=== PATIENT | female | born 1940 | race Caucasian/White ===

== ENCOUNTER 2019-10-31 14:55 | Emergency (ER) | payer MEDICARE, MEDICAID ==
--- NOTE | 2019-10-31 15:23 | EDM.PDOC ---
ED HPI GENERAL MEDICAL PROBLEM - General Chief Complaint: Respiratory Problem Stated Complaint: COUGH Time Seen by Provider: 10/31/19 15:23 Source of Information: Reports: Patient, Family History Limitations: Reports: Altered Mental Status (Dementia) - History of Present Illness INITIAL COMMENTS - FREE TEXT/NARRATIVE: The patient is seen with her a tilesetter from the long-term. He states that she has been coughing for about a week but does not seem to bring up anything. No fever or chills reported. No other complaints noted. Onset: Gradual (about one week) Worsens with: Reports: Other (coughing) Associated Symptoms: Reports: Other (The patient has dementia) - Related Data Allergies Allergy/AdvReac Type Severity Reaction Status Date / Time No Known Allergies Allergy Verified 10/31/19 15:24 Home Meds: Home Meds Acetaminophen [Tylenol Arthritis] 650 mg PO Q4HR PRN 10/31/19 [History] Acetaminophen [Tylenol Arthritis] 650 mg PO QID 10/31/19 [History] Albuterol Sulfate 2.5 mg IH QID 10/31/19 [History] Alendronate Sodium [Fosamax] 70 mg PO WEEKLY 10/31/19 [History] Benzonatate [Tessalon Perle] 100 mg PO Q12HR PRN 10 Days #20 capsule 10/31/19 [ Rx] Budesonide/Formoterol Fumarate [Symbicort 160-4.5 Mcg Inhaler] 2 puff INH BID [History] Calcium Citrate/Vitamin D3 [Calcium Cit 315-Vit D3 250 Tab] 1 tab PO BID [History] Carbamide Peroxide [Debrox] 5 drop OT ASDIRECTED 10/31/19 [History] Cephalexin [Keflex] 500 mg PO Q12HR 7 Days #14 capsule 10/31/19 [Rx] Dextromethorphan/guaiFENesin [Mucinex DM ER 600-30 MG] 1 tab PO BID 5 Days #10 tab.er 10/31/19 [Rx] Furosemide 20 mg PO DAILY 10/31/19 [History] Ipratropium/Albuterol Sulfate [Iprat-Albut 0.5-3(2.5) mg/3 ml] 3 ml IH ASDIRECTED 10/31/19 [History] Levothyroxine 25 mcg PO ACBREAKFAST 10/31/19 [History] Metoprolol Tartrate [Lopressor] 50 mg PO BID 10/31/19 [History] Multivitamin [Multi-Vitamin Daily] 1 tab PO DAILY 10/31/19 [History] Nystatin 1 each MC ASDIRECTED 10/31/19 [History] Omeprazole 20 mg PO DAILY 10/31/19 [History] Polyethylene Glycol 3350 [MiraLAX] 17 gm PO DAILY 10/31/19 [History] Rosuvastatin [Crestor] 5 mg PO DAILY 10/31/19 [History] Sertraline HCl [Zoloft] 50 mg PO DAILY 10/31/19 [History] Trolamine Salicylate/Aloe Vera [Aspercreme 10% Cream] 1 dose TOP Q6HR PRN [History] ED ROS GENERAL - Review of Systems Review Of Systems: See Below Constitutional: Reports: No Symptoms HEENT: Reports: No Symptoms Respiratory: Reports: Cough (that is non-productive for about one week) Cardiovascular: Reports: No Symptoms Endocrine: Reports: No Symptoms GI/Abdominal: Reports: No Symptoms : Reports: No Symptoms Musculoskeletal: Reports: No Symptoms Skin: Reports: No Symptoms Neurological: Reports: Other (has dementia) ED EXAM, GENERAL - Physical Exam Exam: See Below Exam Limited By: Altered Mental Status (Dementia) General Appearance: Alert, WD/WN, No Apparent Distress Eye Exam: Bilateral Eye: EOMI, Normal Inspection, PERRL Ears: Normal External Exam, Normal Canal, Hearing Grossly Normal, Normal TMs Ear Exam: Bilateral Ear: Auricle Normal, Canal Normal, TM normal Nose: Normal Inspection, Normal Mucosa, No Blood Throat/Mouth: Normal Inspection, Normal Lips, Normal Teeth, Normal Gums, Normal Oropharynx, No Airway Compromise Head: Atraumatic, Normocephalic Neck: Normal Inspection, Supple, Non-Tender, Full Range of Motion Respiratory/Chest: No Respiratory Distress, Decreased Breath Sounds (through out ), Rales (in both bases), Rhonchi (rhonchi noted through the chest wall with rales at the bases.). No: Crackles, Wheezing, Stridor, Pleural Rub, Accessory Muscle Use, Retractions Cardiovascular: No Edema, No Gallop, No JVD, No Rub, Systolic Murmur (grade 2-3/ 6 best heard at the apex). No: Gallop/S3, Gallop/S4 Peripheral Pulses: 1+: Dorsalis Pedis (L), Dorsalis Pedis (R), 2+: Radial (L), Radial (R), 3+: Carotid (L), Carotid (R) GI/Abdominal: Normal Bowel Sounds, Soft, Non-Tender, No Organomegaly, No Distention, No Abnormal Bruit, No Mass Back Exam: Normal Inspection, Full Range of Motion, NT Extremities: Normal Inspection, Normal Range of Motion, Non-Tender, Normal Capillary Refill, No Pedal Edema Neurological: Other (unable evaluate due to dementia) Psychiatric: Other (unable to evaluate due to dementia) Lymphatic: No Adenopathy Course - Vital Signs Text/Narrative:: The patient is doing much better just prior to discharge. She has a oxygen sat of 94% on 1 liter of nasal oxygen. She is coughing much less. We stopped the Levaquin due to probable drug reaction and treated her with Atarax. The red rash in the left arm cleared. Her lungs sounds are improved. She will be discharged with Keflex, Mucinex DM and Tensilon pearls. She and the Screw Machine Set Up Operator agrees with the treatment and discharge plan. Last Recorded V/S: Last Vital Signs Temp 96.8 F 10/31/19 15:16 Pulse 102 H 10/31/19 17:28 Resp 20 10/31/19 17:28 BP 95/75 10/31/19 17:28 Pulse Ox 95 10/31/19 17:28 - Orders/Labs/Meds Orders: Active Orders 24 hr Category Date Time Status Levofloxacin/Dextrose 5%-Water [Levaquin in D5W 750 MG/ Med 10/31/19 16:37 Active 150 ML] 750 mg Premix Bag 1 bag IV ONETIME Sodium Chloride 0.9% [Normal Saline] 500 ml Med 10/31/19 17:00 Active IV .BOLUS Medication Orders Levofloxacin/Dextrose 750 mg/ (Premix) 150 mls @ 100 mls/hr IV ONETIME ONE Stop: 10/31/19 18:06 Last Admin: 10/31/19 17:01 Dose: 100 mls/hr Sodium Chloride (Normal Saline) 500 mls @ 999 mls/hr IV .BOLUS NEGRO Last Admin: 10/31/19 16:59 Dose: 999 mls/hr Labs: Laboratory Tests 10/31/19 10/31/19 Range/Units 13:50 13:50 WBC 6.88 (4.0-11.0) K/uL RBC 4.28 L (4.30-5.90) M/uL Hgb 12.1 (12.0-16.0) g/dL Hct 36.7 (36.0-46.0) % MCV 85.7 (80.0-98.0) fL MCH 28.3 (27.0-32.0) pg MCHC 33.0 (31.0-37.0) g/dL RDW Std Deviation 45.0 (28.0-62.0) fl RDW Coeff of Bill 15 (11.0-15.0) % Plt Count 315 (150-400) K/uL MPV 8.60 (7.40-12.00) fL Neut % (Auto) 71.1 (48.0-80.0) % Lymph % (Auto) 21.5 (16.0-40.0) % Page % (Auto) 6.4 (0.0-15.0) % Eos % (Auto) 0.9 (0.0-7.0) % Baso % (Auto) 0.1 (0.0-1.5) % Neut # (Auto) 4.9 (1.4-5.7) K/uL Lymph # (Auto) 1.5 (0.6-2.4) K/uL Page # (Auto) 0.4 (0.0-0.8) K/uL Eos # (Auto) 0.1 (0.0-0.7) K/uL Baso # (Auto) 0.0 (0.0-0.1) K/uL B-Natriuretic Peptide 148 H (<100) PG/ML Meds: Medications Generic Name Dose Route Start Last Admin Trade Name Freq PRN Reason Stop Dose Admin Levofloxacin/Dextrose 750 mg/ 150 mls @ 100 mls/hr 10/31/19 16:37 10/31/19 17 :01 Premix IV 10/31/19 18:06 100 mls/hr ONETIME ONE Administration Sodium Chloride 500 mls @ 999 mls/hr 10/31/19 17:00 10/31/19 16:59 Normal Saline IV 999 mls/hr .BOLUS NEGRO Administration Discontinued Medications Generic Name Dose Route Start Last Admin Trade Name Markell PRN Reason Stop Dose Admin Benzonatate 100 mg 10/31/19 17:59 Tessalon Perles PO 10/31/19 18:00 ONETIME ONE Cephalexin 500 mg 10/31/19 18:00 Keflex PO 10/31/19 18:01 ONETIME ONE Guaifenesin 600 mg 10/31/19 15:34 10/31/19 15:57 Mucinex PO 10/31/19 15:35 600 mg ONETIME ONE Administration Hydroxyzine HCl 25 mg 10/31/19 17:21 10/31/19 17:28 Atarax PO 10/31/19 17:22 25 mg ONETIME ONE Administration Departure - Departure Time of Disposition: 18:06 Disposition: Home, Self-Care 01 Condition: Fair Clinical Impression: Bronchitis - Discharge Information *PRESCRIPTION DRUG MONITORING PROGRAM REVIEWED*: Yes *COPY OF PRESCRIPTION DRUG MONITORING REPORT IN PATIENT ELIAN: Yes Instructions: Upper Respiratory Infection, Adult, Acute Bronchitis, Adult, Easy -to-Read Referrals: Guillermo Luz MD [Primary Care Provider] - Forms: ED Department Discharge Additional Instructions: Take all medications as directed. Rest for the next 24 hours. Drink plenty of clear liquids for the next 24-36 hours. Follow up with your PCP in the next two to four days. Return to the ED if your condition gets worse or should have any questions or concerns. The following information is given to patients seen in the emergency department who are being discharged to home. This information is to outline your options for follow-up care. We provide all patients seen in our emergency department with a follow-up referral. The need for follow-up, as well as the timing and circumstances, are variable depending upon the specifics of your emergency department visit. If you don't have a primary care physician on staff, we will provide you with a referral. We always advise you to contact your personal physician following an emergency department visit to inform them of the circumstance of the visit and for follow-up with them and/or the need for any referrals to a consulting specialist. The emergency department will also refer you to a specialist when appropriate. This referral assures that you have the opportunity for follow-up care with a specialist. All of these measure are taken in an effort to provide you with optimal care, which includes your follow-up. Under all circumstances we always encourage you to contact your private physician who remains a resource for coordinating your care. When calling for follow-up care, please make the office aware that this follow-up is from your recent emergency room visit. If for any reason you are refused follow-up, please contact the [facility] Emergency Department at and asked to speak to the emergency department charge nurse. Sepsis Event Note - Focused Exam Vital Signs: Vital Signs Temp Pulse Resp BP Pulse Ox 10/31/19 17:28 102 H 20 95/75 95 10/31/19 16:33 87 20 106/68 95 10/31/19 15:16 96.8 F 91 20 148/51 H 90 L Date Exam was Performed: 10/31/19 Time Exam was Performed: 18:01 - My Orders Last 24 Hours: My Active Orders 10/31/19 16:37 Levofloxacin/Dextrose 5%-Water [Levaquin in D5W 750 MG/150 ML] 750 mg Premix Bag 1 bag IV ONETIME 10/31/19 17:00 Sodium Chloride 0.9% [Normal Saline] 500 ml IV .BOLUS - Assessment/Plan Last 24 Hours: My Active Orders 10/31/19 16:37 Levofloxacin/Dextrose 5%-Water [Levaquin in D5W 750 MG/150 ML] 750 mg Premix Bag 1 bag IV ONETIME 10/31/19 17:00 Sodium Chloride 0.9% [Normal Saline] 500 ml IV .BOLUS
[2019-10-31] MEDS ORDERED: guaiFENesin 600 MG Tab.ER PO ONE (15:34)
[2019-10-31] MEDS ORDERED: Levofloxacin/Dextrose 5%-Water 750 MG in Premix Bag 1 BAG IV ONE (16:37)
--- NOTE | 2019-10-31 16:42 | CR ---
Chest: 2 views of the chest were obtained. Comparison: Prior chest x-ray of 07/04/13. Pulmonary vessels are felt to be mildly congested. Lungs otherwise are clear. Heart size and mediastinum are stable. Bony structures are unremarkable for the patient's age. Impression: 1. Findings suspicious for mild pulmonary vascular congestion. Diagnostic code #3 This report was dictated in [place] Standard Time
[2019-10-31] MEDS ORDERED: Sodium Chloride 0.9% 500 ML IV SCH (17:00)
[2019-10-31] MEDS ORDERED: hydrOXYzine HCl 25 MG Tab PO ONE (17:21)
[2019-10-31] MEDS ORDERED: Benzonatate 100 MG Cap PO ONE (17:59)
[2019-10-31] MEDS ORDERED: Cephalexin 500 MG Cap PO ONE ×2 (18:00→18:01)
== END 2019-10-31 18:40 | disposition home or self-care (01) ==
LOC: MW.ED 14:55
DX: J40 Bronchitis, not specified as acute or chronic (principal)
CPT/HCPCS: 36415; 71046; 83880; 85025; 87804; 96365; 99283; A9270; J1956; J7040

== ENCOUNTER 2023-11-22 10:00 | Emergency (ER) | payer MEDICARE, MEDICAID ==
[2023-11-22 11:19] LABS: CORONAVIRUS COVID-19 NAA NEGATIVE (NEGATIVE); INFLUENZA A NAA POSITIVE (NEGATIVE); INFLUENZA B NAA NEGATIVE (NEGATIVE); RESPIRATORY SYNCYTIAL VIR NAA NEGATIVE (NEGATIVE)
[2023-11-22 11:45] LABS: BASOPHILS ABSOLUTE AUTO 0.01 K/uL (0.00-0.20); BASOPHILS PERCENT AUTO 0.2 % (0.0-1.0); HEMATOCRIT 41.8 % (37.0-47.0); HEMOGLOBIN 13.5 g/dL (12.0-16.0); IMMATURE GRAN ABSOLUTE AUTO 0.02 K/uL (0.00-0.05); IMMATURE GRAN PERCENT AUTO 0.5 % (0.0-0.4); LYMPHOCYTES PERCENT AUTO 24.2 % (24.0-44.0); MEAN CORPUSCULAR HEMOGLOBIN 30.3 pg (28.0-32.0); MEAN CORPUSCULAR HGB CONC 32.3 g/dL (32.0-36.0); MEAN CORPUSCULAR VOLUME 93.9 fL (83.0-99.0); MEAN PLATELET VOLUME 9.3 fL (9.4-12.3); MONOCYTES ABSOLUTE AUTO 0.38 K/uL (0.00-0.80); MONOCYTES PERCENT AUTO 9.2 % (0.0-8.0); NEUTROPHILS ABSOLUTE AUTO 2.72 K/uL (1.80-7.70); NEUTROPHILS PERCENT AUTO 65.9 % (41.0-71.0); PLATELET COUNT,PLT 167 K/uL (150-400); RED BLOOD CELL COUNT 4.45 M/uL (4.10-5.30); WHITE BLOOD CELL COUNT,WBC 4.13 K/uL (3.9-11.3)
[2023-11-22] MEDS: Sodium Chloride 0.9% 10 ML Syringe FLUSH PRN (11:58)
[2023-11-22] MEDS: Sodium Chloride 0.9% 2.5 ML Syringe FLUSH PRN (11:58)
[2023-11-22 12:19] LABS: A/G RATIO 0.7 (0.9-1.6); BILIRUBIN TOTAL 0.4 mg/dL (0.2-1.0); CALCIUM 8.6 mg/dL (8.5-10.1); CARBON DIOXIDE,CO2 26.9 mmol/L (21.0-32.0); CREATININE 0.7 mg/dL (0.6-1.0); EST CRCL DRUG DOSING (CG) 57.01 mL/min; PROTEIN TOTAL,TP 7.3 g/dL (6.4-8.2)
[2023-11-22 12:24] LABS: MAGNESIUM 2.3 mg/dL (1.8-2.4)
[2023-11-22] MEDS: Oseltamivir 75 MG Cap PO STA (13:07)
[2023-11-22] MEDS: Oseltamivir 6 MG/ML Susp 60 ML Bot PO STA (13:30)
== END 2023-11-22 15:50 | disposition home or self-care (01) ==
LOC: MW.ED 10:00
DX: J10.1 Influenza due to other identified influenza virus with other respiratory manifestations (principal); R91.8 Other nonspecific abnormal finding of lung field; G89.29 Other chronic pain; I10 Essential (primary) hypertension; E78.00 Pure hypercholesterolemia, unspecified; K21.9 Gastro-esophageal reflux disease without esophagitis; E03.9 Hypothyroidism, unspecified; E78.5 Hyperlipidemia, unspecified; E66.9 Obesity, unspecified; J45.909 Unspecified asthma, uncomplicated; Z68.32 Body mass index [BMI] 32.0-32.9, adult; Z99.81 Dependence on supplemental oxygen; Z79.899 Other long term (current) drug therapy; Z75.8 Other problems related to medical facilities and other health care
CPT/HCPCS: 0241U; 36415; 71045; 80053; 83690; 83735; 83880; 84484; 85025; 93005; 99284; A9270; J3490; 93010; 99283